=== PATIENT | female | born 1970 | race Caucasian/White ===

== ENCOUNTER → 2016-07-30 | Outpatient (CLI) | payer MEDICARE, MEDICAID ==
[~2016-07-30] MED LIST: ALPRAZOLAM0.5 MG OR; AMOXIL500 MG PO; ANTIVERT GENERI25 MG PO; APAP/BUTALBITAL1 TA1 PO; CIPRO 500MG TA500 MG PO; CLINDAMYCIN HC300 MG PO; DIAZEPAM10 M1 PO; FLEXERIL10 MG PO; GABAPENTIN 600600 MG PO; GABAPENTIN300 MG PO; HYDROCODON-ACETAMINO OR; IBUPROFEN800 MG PO; KEFLEX 500MG.500 MG PO; LOPRESSOR 25MG.25 M1 PO; LORTAB 5/500 501 TAB PO; LORTAB 7.5/3251 TAB PO; MECLIZINE12.5 M1 PO; MEDROL 4MG. DOSE4 MG PO; METHOCARBAMOL750 M1 PO; MINOCYCLINE 10100 MG PO; OMEPRAZOLE20 MG PO; PERCOCET 5/3251 EACH PO; PREDNISONE 20MG20 MG PO; PREDNISONE50 MG PO; SEPTRA DS 800 M1 TAB PO; TESSALON PERLE100 MG PO; VICODIN 5/500 T1 TAB PO; ZANAFLEX4 MG PO; ZITHROMAX 250M250 MG PO
[2016-07-30 20:25] LABS: AMPHETAMINES/METAMPHETAMINES NEGATIVE ng/mL (<1000)
== END ==
LOC: LAB 17:39
PROVIDERS: Physician Assistant
DX: M50.30 Other cervical disc degeneration, unspecified cervical region (principal); Z79.899 Other long term (current) drug therapy

== ENCOUNTER → 2017-02-10 | Outpatient (CLI) | payer MEDICARE, MEDICAID ==
[~2017-02-10] MED LIST changes: +BENADRYL ALLERG25 M3 PO; +PREDNISONE20 MG PO; +Pepcid20 MG PO
[2017-02-10 14:33] LABS: HEMOGLOBIN 15.6 g/dL (12.2-16.2); LYMPH # 2.2 K/mm3 (0.7-4.5); LYMPH % 28.4 % (10-50.0)
[2017-02-10 16:04] LABS: BUN 11 mg/dL (7-18)
[2017-02-10 16:10] LABS: GFR (ESTIMATED) 90 ML/MIN (59-)
[2017-02-10 21:28] LABS: AMPHETAMINES/METAMPHETAMINES NEGATIVE ng/mL (<1000)
[2017-02-11 08:43] LABS: RA Latex Turbid. <10.0 IU/mL (0.0-13.9)
[2017-02-12 08:46] LABS: Antinuclear Antibodies, IFA Negative (.)
[2017-02-13 03:36] LABS: CCP Antibodies IgG/IgA 1 units (0-19)
== END ==
LOC: LAB 13:55
PROVIDERS: Physician Assistant
DX: M25.50 Pain in unspecified joint (principal); Z79.899 Other long term (current) drug therapy

== ENCOUNTER 2017-04-17 12:24 | Emergency (ER) | payer MEDICARE, MEDICAID ==
[~2017-04-17] VITALS: Ht 165.1 cm; Wt 81.6 kg
--- OUTSIDE RECORDS SUMMARY | 2017-04-17 12:31 | External Medical Summary Rpt | CCD ---
Author Author Conduent Organization Conduent Address Unknown Phone Unavailable Purpose Continuity of Care Document - through 2016
--- OUTSIDE RECORDS SUMMARY | 2017-04-17 12:31 | External Medical Summary Rpt | CCD ---
Demographics Preferred Language Romanian Marital Status Unknown Sabianist Affiliation Unknown Race Unknown Ethnic Group Unknown Author Author , ALESHIA MONK Address Unknown Phone Immunization No patient found.
--- OUTSIDE RECORDS SUMMARY | 2017-04-17 12:31 | External Medical Summary Rpt ---
Author Author ALESHIA Mayers, [employer] Organization [employer] Address Unknown Phone Unavailable
--- OUTSIDE RECORDS SUMMARY | 2017-04-17 12:31 | External Medical Summary Rpt | CCD ---
Demographics Preferred Language Yi Marital Status Unknown Church Affiliation Unknown Race Unknown Ethnic Group Unknown Author Author , ALESHIA MONK Address Unknown Phone Immunization No patient found.
--- OUTSIDE RECORDS SUMMARY | 2017-04-17 12:31 | External Medical Summary Rpt | CCD ---
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 Z85.3 PERSONAL 08-08-2016 HISTORY OF MALIGNANT NEOPLASM OF BREAST 338.18 338.18 02-16-2013 [facility] POSTOPERATI VE PAIN 786.05 786.05 02-16-2013 [place] SHORTNESS [facility] 786.50 786.50 02-16-2013 [place] CHEST PAIN [facility] M50.30 Other 09-20-2011 cervical disc degeneratio n, unspecified cervical region E04.9 NONTOXIC GOITER, UNSPECIFIED F01.51 Vascular dementia with behavioral disturbance J32.9 CHRONIC SINUSITIS, UNSPECIFIED K02.9 Dental caries, unspecified M25.50 PAIN IN UNSPECIFIED JOINT M48.02 SPINAL STENOSIS, CERVICAL REGION M54.2 CERVICALGIA R07.9 CHEST PAIN, UNSPECIFIED R41.0 DISORIENTAT ION, UNSPECIFIED R90.89 Other abnormal findings on diagnostic imaging of central nervous system T78.40XA ALLERGY, UNSPECIFIED , INITIAL ENCOUNTER Z00.00 Encounter for general adult medical examination without abnormal findings Z79.899 OTHER CUSTODIAL (CURRENT) DRUG THERAPY Allergies, Adverse Reactions, Alerts Type Drug Allergy Adverse Reaction to Substance Substance Reaction Severity Aspirin I-HIVES Intermediate Amoxicillin I-RASH Intermediate Codeine I-ITCHING Unknown Tramadol E-EIXWGS-CBNV/THROAT Unknown Medications Na ND Rx Da Fi Fi Am Da Di Ph RX Ph St me C No te ll ll ou ys ag ar # ys at rm s nt no ma ic us Or Da si cy ia de te s n re d Sa 63 10 0 No li 80 -0 ne 70 1- Lo 10 20 ng Fl 07 13 er us 5 h Ac 10 ti ML ve Sy ri ng e IS 00 10 0 No OV 27 -0 UE 01 1- Lo -3 31 20 ng 70 65 13 er 2 76 Ac % ti IN ve FU S BRYANT TT LE SO 00 10 0 No DI 40 -0 UM 94 1- Lo 88 20 ng CH 82 13 er LO 0 RI Ac DE ti ve 0. 9% AL RA 63 10 0 No D- 80 -0 SA 70 1- Lo LI 10 20 ng NE 07 13 er 5A FL Ac US ti H ve 10 ML SY RI NG E KE 00 10 0 No TO 40 -0 RO 93 1- Lo LA 79 20 ng C 50 13 er 30 1 Ac MG ti /M ve L AL CI 24 10 0 No TR 38 -0 AT 50 1- Lo E 67 20 ng OF 51 13 er 0 MA Ac GN ti ES ve IA SO LN Vital Signs 02-16-2013 05:17 Name Value Interpretat Reference Comment ion Range BP 78 mm[Hg] Diastolic BP Systolic 120 mm[Hg] Heart 72 /min Rate/Pulse O2% 94 % Respiratory 20 /min Rate 02-16-2013 03:07 Name Value Interpretat Reference Comment ion Range BP 99 mm[Hg] Diastolic BP Systolic 158 mm[Hg] Heart 82 /min Rate/Pulse O2% 97 % Respiratory 20 /min Rate Results Labs Lab Lab Date Result Refere Interp Status Commen Order Detail nces retati t Range on URINALYSIS/COMPLETE (02-16-2013 04:42) URINE YELLOW YELLOW complet COLOR 013 ed 04:42 URINE CLEAR CLEAR complet APPEARA 013 ed NCE 04:42 URINE NEGATIV NEG complet GLUCOSE 013 E ed - 04:42 DIPSTIC K URINE NEGATIV NEG complet BILIRUB 013 E ed IN - 04:42 DIPSTIC K URINE NEGATIV NEG complet KETONE 013 E mg/dL ed 04:42 URINE 1.010 1.005-1 complet SPECIFI 013 UNK .030 ed C 04:42 GRAVITY URINE NEGATIV NEG complet BLOOD 013 E ed 04:42 URINE 8.0 UNK 5.0-8.5 complet PH 013 ed 04:42 URINE NEGATIV NEG complet PROTEIN 013 E mg/dL ed - 04:42 DIPSTIC K URINE 4.0 NEG complet UROBILI 013 E.U./dL ed NOGEN - 04:42 DIPSTIC K URINE NEGATIV NEG complet NITRATE 013 E ed - 04:42 DIPSTIC K URINE NEGATIV NEG complet LEUK 013 E ed ESTERAS 04:42 E URINE OCC O complet WBC 013 wbc/hpf ed 04:42 URINE 20-50 0-5 complet SQUAMOU 013 #/hpf ed S CELLS 04:42 COMPREHENSIVE METABOLIC PANEL (02-16-2013 02:40) Glucose 112 74-106 complet 013 mg/dL ed Bld-mCn 02:40 c BUN 7 mg/dL 7-18 complet Bld-mCn 013 ed c 02:40 Creat 0.8 0.6-1.0 complet SerPl-m 013 mg/dL ed Cnc 02:40 GFR 79 59- complet (ESTIMA 013 ML/MIN ed JOVANNA) 02:40 Sodium 143 136-145 complet SerPl-s 013 mmoL/L ed Cnc 02:40 Potassi 3.4 3.5-5.1 complet um 013 mmoL/L ed SerPl-s 02:40 Cnc Chlorid 105 98-107 complet e 013 mmoL/L ed SerPl-s 02:40 Cnc CO2 28 21.0-32 complet SerPl-s 013 mmoL/L .0 ed Cnc 02:40 Calcium 8.9 8.5-10. complet 013 mg/dL 1 ed SerPl-m 02:40 Cnc Prot 7.5 6.4-8.2 complet SerPl-m 013 gm/dL ed Cnc 02:40 Albumin 3.4 3.4-5.0 complet 013 gm/dL ed SerPl-m 02:40 Cnc Globuli 4.1 1.3-3.2 complet n 013 gm/dL ed Ser-mCn 02:40 c Albumin 0.8 UNK 1.1-1.8 complet /Glob 013 ed SerPl-m 02:40 Rto Bilirub 0.4 0.2-1.0 complet 013 mg/dL ed SerPl-m 02:40 Cnc AST 45 U/L 15-37 complet SerPl-c 013 ed Cnc 02:40 ALT 82 U/L 30-65 complet SerPl-c 013 ed Cnc 02:40 ALP 188 U/L 50-136 complet SerPl-c 013 ed Cnc 02:40 D Dimer PPP (02-16-2013 02:40) D Dimer 838 0-400 High complet PPP 013 ng/mL alert ed 02:40 CBC with AUTO DIFF (02-16-2013 02:40) WBC # 02-16-2 8.1 4.8-10. complet Bld 013 K/MM3 8 ed Auto 02:40 RBC # 02-16-2 4.93 4.2-5.4 complet Bld 013 M/mm3 ed Auto 02:40 Hgb 15.2 12.2-16 complet Bld-mCn 013 g/dL .2 ed c 02:40 Hct Fr 44.3 % 37.0-47 complet Bld 013 .0 ed 02:40 MCV RBC 89.9 fl 82.2-97 complet 013 .8 ed 02:40 MCH RBC 30.8 pg 27-31.2 complet Qn 013 ed Auto 02:40 MEAN 34.3 31.8-35 complet CORPUSC 013 g/dl .4 ed ULAR 02:40 HGB CONC RDW RBC 14.1 % 11.5-17 complet Auto 013 .5 ed 02:40 Platele 263 142-424 complet t Bld 013 K/mm3 ed Ql 02:40 Manual MEAN 10-01-2 9.4 fl 7.4-10. complet PLATELE 013 4 ed T 02:40 VOLUME Granulo 02-16- 65.6 % 37.0-80 complet cytes 013 .0 ed Fr Bld 02:40 Auto LYMPH % 02-16-2 22.5 % 10-50.0 complet 013 ed 02:40 Monocyt 02-16-2 5.2 % 1.7-9.3 complet es Fr 013 ed Bld 02:40 Auto Eosinop 02-16-2 6.4 % 0.1-12. complet hil Fr 013 0 ed Bld 02:40 Auto Basophi 02-16-2 0.3 % 0.1-2.0 complet ls Fr 013 ed Bld 02:40 Auto Granulo 02-16-2 5.3 1.8-7.8 complet cytes # 013 K/mm3 ed Bld 02:40 Auto Lymphoc 02-16-2 1.8 0.7-4.5 complet ytes Fr 013 K/mm3 ed Bld 02:40 Auto Monocyt 02-16-2 0.4 0.1-1.0 complet es # 013 K/mm3 ed Bld 02:40 Auto Eosinop 02-16-2 0.5 0.0-0.4 complet hil # 013 K/mm3 ed Bld 02:40 Auto Basophi 02-16-2 0.0 0-0.2 complet ls # 013 K/MM3 ed Bld 02:40 Auto Encounters Encounter Start End Date Code Location Performer Type Date Emergency ROXANNA Doyle MD (ER) 3 04:48 3 05:18 [facility]
--- OUTSIDE RECORDS SUMMARY | 2017-04-17 12:31 | External Medical Summary Rpt | CCD ---
Author Author , ALESHIA MONK Address Unknown Phone Care Team Providers Care Assembly Machine Feeder Name Role Phone Chano Doyle MD, Unavailable [...] MALIGNANT NEOPLASM OF BREAST 338.18 338.18 02-16-2013 [facility] POSTOPERATI VE PAIN 786.05 786.05 02-16-[address] [place] [address] [facility] 786.50 786.50 02-16-2013 [place] CHEST PAIN [facility] M50.30 Other 09-20-2011 cervical disc degeneratio [...] medical examination without abnormal findings Z79.899 OTHER [facility] (CURRENT) DRUG THERAPY Allergies, Adverse Reactions, Alerts Type Drug Allergy Adverse Reaction to Substance Substance Reaction Severity Aspirin I-HIVES Intermediate Amoxicillin I-RASH Intermediate Codeine I-ITCHING Unknown Tramadol E-CLTGEU-FHGH/THROAT Unknown Medications Na ND Rx Da Fi [...] Doyle MD (ER) 3 04:48 3 05:18 [facility]
--- NOTE | 2017-04-17 13:29 | Urgent Treatment Center Report ---
History of Present Issue Date/Time Seen by Provider 04/17/17 1328 Visit Reason Pt arrived:Walked Presenting Problem:PT STATES SHE HAS A CAVITY ON LOWER RT SIDE THAT HAS BEEN HURTING. Location if Accident: Onset of symptoms date/time:/ or onset unknown for:MEDICAL HX UNKNOWN Have you (or family members/close friends) recently traveled outside the [place]? N If Yes, where/when: Have you had exposure to infectious disease within the past month? TB? Other? Specify: c/o dental pain bottom right side surrounding an old cavity x 2-3 days. No dental insurance. Hasn't tried to see a dentist. Denies fever. Thinks mild swelling this morning. Hurts worse to eat. Source patient Exam Limitations no limitations ALLERGIES Coded Allergies: tramadol (Severe, W-SUCLNY-FGTK/THROAT 12/29/16) amoxicillin (Intermediate, I-RASH 12/29/16) aspirin (Intermediate, I-HIVES 12/29/16) codeine (Intermediate, I-ITCHING 12/29/16) acetaminophen (From ULTRACET) (12/29/16) Home Medications Active Scripts BENZONATATE (Benzonatate) 100 MG PO TID #15 CAP Prov: 02/09/16 Prednisone (Prednisone 20MG) 20 MG PO BID #10 TAB Prov: 02/09/16 HYDROCODONE/ACETAMINOPHEN (Lortab 7.5-325 MG Tablet) 1 TAB PO Q6H6 #15 TAB Prov: 09/10/14 Famotidine (Pepcid 20MG) 20 MG PO BID #4 TAB Prov: 12/29/16 Prednisone (Prednisone 20MG Tab) 20 MG PO BID #4 TAB Prov: 12/29/16 Reported Medications Diazepam 10 MG PO QHS #30 Omeprazole (Omeprazole 20MG) 20 MG PO DAILY #30 Ibuprofen (Ibuprofen 800MG) 800 MG PO PRN Metoprolol Tartrate (Lopressor 25MG Tab (1/2 Of 50 MG)) 50 MG PO BID MECLIZINE HCL (Meclizine HCl) 12.5 MG PO PRN Gabapentin (Gabapentin 300MG) 300 MG PO TID History Medical History General CAD? No Angina: No MO: No Hypertension? Yes Hyperlipidemia? No CHF? No DVT? No PE? No COPD? No Asthma? No Anemia? No GERD? No Gastric ulcers? No GI Bleed? No Hernia? No Thyroid Problems? Yes Hypothyroidism? No CVA? No Seizures? No Diabetes? Yes Insulin Dependent: No Insulin Pump: No Home FSBS? Yes Renal Insuffiency? No UTI? No Stones? No BPH? No GB Disease: Yes Nephritic Syndrome? No Asplenia? No Hepatitis? No Sickle Cell Disease? No Arthritis? No Migraines? No Cataracts? No Glaucoma? No MRSA? No HIV? No TB? No Anxiety? No Depression? No Cancer? Yes Site: CERVIX AND R BREAST More? No Immunization HX DT/Tetanus Unknown Flu 2YRSorMore Pneumonia NEVER Surgical Hx Previous Surgery?Y X 1 THYROIDECTOMY-PARTIAL TUBAL Tubal Ligation LUMPECTOMY RT BREAST HYSTERECTOMY CHOLECYSTECTOMY CERVICAL SPINE SURGERY Family History Family HX Diabetes Yes CAD Yes Hypertension Yes Hyperlipidemia No Cancer No TB No Social History Smoking Hx Smoker: Current Every Day Smoker Tobacco: Yes Type Cigarettes Packs/day < 1 Pack Alcohol Alcohol: No Review of Systems All Other Systems Reviewed and Negative Constitutional see HPI, denies malaise Eyes denies inflammation, denies pain ENT dental caries, missing teeth. denies: ear pain, mouth pain, tongue swelling, throat pain, throat swelling. Respiratory denies shortness of breath Gastrointestinal denies no symptoms reported Musculoskeletal denies neck pain Skin denies lesions, denies lumps, denies rash Psychiatric/Neurological denies headache Physical Exam Vital Signs Vital Signs Date Time Temp Pulse Resp B/P Pulse O2 O2 Flow FiO2 Ox Delivery Rate 04/17 1241 97.1 80 20 170/99 99 General Appearance no apparent distress Ear, Nose, Throat normal pharynx (w/o erythema), dental caries, missing teeth; right bottom premolar partially missing w/ cavity (pt denies injury and thinks that way due to old cavity), ttp surrounding tooth w/o swelling or erythema; Neck non-tender, supple, full range of motion Respiratory Status No: respiratory distress. Cardiovascular no peripheral edema Neurologic alert, oriented x 3 Skin intact, normal color, warm/dry Lymphatic no adenopathy Medical Decision Making LABS/Meds/Orders Pt receiving controlled substance in ED? No Results/Orders Current Medication Orders Sig/Shawn Start time Last Medication Dose Route Stop Time Status Admin Lidocaine HCl 15 ML ONCE ONE 04/17 1245 DC 04/17 TP 04/17 1246 1249 Lidocaine HCl 0 .STK-MED ONE 04/17 1244 DC .ROUTE Orders Procedure Date/time Status [facility] DENTAL BALL 04/17 1236 Active Departure Departure Time of Disposition 1333 Disposition DC Home or Self Care(routine) Clinical Impression Primary Impression: Pain due to dental caries Condition STABLE Referrals TAYLOR LORENZANA Call his office today. Discuss pymt options and possibility of an appointment. This can not be fixed without seeing a dentist Patient Instructions DI for Dental Pain, DI for Tooth Decay Additional Instructions Start antibiotic immediately. Ibuprofen every 6 hours as needed for pain/swelling Dental balls as needed for pain See dentist MARINA. Risk of dental abscess discussed. Aware this can not be fixed by a medical provider, needs a dentist. Discharge Counseling Counseled pt/family regarding diagnosis, medications/RX, home care, follow up needs Prescriptions Current Visit Scripts Clindamycin Hcl (Clindamycin 300MG) 300 MG PO TID #30 CAP at 1345
[2017-04-17] MEDS ORDERED: CLINDAMYCIN HC300 MG PO (13:36)
[2017-04-17 13:39] VITALS: BP 170/99
== END 2017-04-17 13:39 | disposition home or self-care (01) ==
LOC: UTC 12:24
DX: K02.9 Dental caries, unspecified (principal); I10 Essential (primary) hypertension; Z88.6 Allergy status to analgesic agent; E11.9 Type 2 diabetes mellitus without complications; F17.210 Nicotine dependence, cigarettes, uncomplicated; Z88.1 Allergy status to other antibiotic agents
CPT/HCPCS: G0463